=== PATIENT | female | born 1975 | race Caucasian/White ===

== ENCOUNTER 2019-12-12 15:39 | Emergency (ER) | payer OTHER ==
[~2019-12-12] VITALS: Ht 157.5 cm; Wt 90.7 kg
[2019-12-12 16:38] LABS: CALCIUM 8.7 mg/dL (8.5-10.1); CREATININE 0.7 mg/dL (0.6-1.3); POTASSIUM 3.3 mmol/L (3.5-5.1)
[2019-12-12] MEDS ORDERED: IBUPROFEN 800800 M1 PO (17:22)
[2019-12-12] MEDS ORDERED: FLEXERIL PO (17:22)
[2019-12-12] MEDS ORDERED: NORCO 5-325 TA1 EAC1 PO (17:22)
[2019-12-12] MEDS ORDERED: PREDNISONE50 MG PO (17:22)
[2019-12-12 17:34] VITALS: BP 161/74
== END 2019-12-12 17:36 | disposition home or self-care (01) ==
LOC: M.ERS 15:39
PROVIDERS: Emergency Medicine Emergency Medical Services
DX: M54.42 Lumbago with sciatica, left side (principal)